=== PATIENT | female | born 1970 | race Caucasian/White ===

== ENCOUNTER 2019-03-06 06:56 | Inpatient (IN) | payer OTHER ==
[2019-03-06] MEDS ORDERED: ROCURONIUM 50 MG INJ (07:00)
[2019-03-06] MEDS ORDERED: THROMBIN 5000 UNIT VIAL (09:24)
[2019-03-06] MEDS ORDERED: LIDOCAINE 1%/EPI (1:100,000) (MDV) 20 ML (09:24)
[2019-03-06] MEDS ORDERED: BUPIVACAINE 0.5%/EPI (SDV) 10 ML INJ (09:24)
[2019-03-06] MEDS ORDERED: METOCLOPRAMIDE 10 MG INJ IV (09:30)
[2019-03-06] MEDS ORDERED: MEPERIDINE 25 MG INJ IV (09:30)
[2019-03-06] MEDS ORDERED: DIPHENHYDRAMINE 50 MG INJ IV (09:30)
[2019-03-06] MEDS ORDERED: HYDROmorphONE 1 MG/5 ML IV SYRINGE IV (09:30)
[2019-03-06] MEDS ORDERED: FENTAnyl 50 MCG/ML VIAL IV (09:30)
[2019-03-06] MEDS ORDERED: MIDAZOLAM 1 MG/ML 2 ML INJ (09:35)
[2019-03-06] MEDS: BUPIVACAINE 0.5%/EPI (SDV) 30 ML INJ (11:20)
[2019-03-06] MEDS: LIDOCAINE 0.5% (SDV) 50 ML INJ (11:20)
[2019-03-06] MEDS ORDERED: FENTAnyl 50 MCG/ML VIAL (12:07)
[2019-03-06] MEDS: THROMBIN 5000 UNIT VIAL (13:51)
[2019-03-06] MEDS: POLYMYXIN/BACITRACIN 1L IRRIG (13:57)
[2019-03-06] MEDS: GELATIN SIZE 100 SPONGE (13:57)
[2019-03-06] MEDS ORDERED: GELATIN SIZE 100 SPONGE (15:02)
[2019-03-06] MEDS ORDERED: CEFAZOLIN 1 GM INJ ×3 (15:31→15:43)
[2019-03-06] MEDS ORDERED: ONDANSETRON 4 MG INJ (15:35)
[2019-03-06] MEDS ORDERED: METOCLOPRAMIDE 10 MG INJ (15:35)
[2019-03-06] MEDS ORDERED: PROPOFOL 20 ML (15:43)
[2019-03-06] MEDS ORDERED: LIDOCAINE 2% (SDV) 5 ML INJ (15:43)
[2019-03-06] MEDS ORDERED: ETOMIDATE 20 MG INJ (15:43)
[2019-03-06] MEDS ORDERED: DOCUSATE SODIUM 100 MG CAP PO ×2 (16:30→17:00)
[2019-03-06] MEDS ORDERED: NALOXONE (0.4 MG/ML) INJ IV (16:30)
[2019-03-06] MEDS ORDERED: NACL 0.9% 3 ML SYG IV (16:30)
[2019-03-06 16:37] LABS: ADD UMIC YES; UR ASCORBIC ACID NEGATIVE (NEGATIVE); UR BILIRUBIN (Dip) NEGATIVE (NEGATIVE); UR BLOOD (Dip) 2+ mg/dL (NEGATIVE); UR CLARITY SLIGHTLY CLOUDY (CLEAR); UR COLOR YELLOW (YELLOW); UR GLUCOSE (Dip) NEGATIVE (NEGATIVE); UR KETONES (Dip) TRACE mg/dL (NEGATIVE); UR LEUKOCYTE ESTERASE (Dip) NEGATIVE Leu/ul (NEGATIVE); UR MUCUS MODERATE /HPF (NONE SEEN); UR NITRITE (Dip) NEGATIVE (NEGATIVE); UR RBC 33 /HPF (0-5); UR TOTAL PROTEIN (Dip) NEGATIVE (NEGATIVE); UR UROBILINOGEN (Dip) NEGATIVE (NEGATIVE); UR WBC 4 /HPF (0-5)
[2019-03-06] MEDS: HYDROmorphONE 1 MG/5 ML IV SYRINGE IV (17:01)
[2019-03-06] MEDS: ONDANSETRON 4 MG INJ IV (17:01)
[2019-03-06] MEDS: DOCUSATE SODIUM 100 MG CAP PO (18:34)
[2019-03-06] MEDS: CEFAZOLIN 1 GM/50 ML (PMX) 50 ML IVPB ×2 (18:34→23:43)
[2019-03-06] MEDS: DEXTROSE 5%-0.45% NACL 1,000 ML IV (18:37)
[2019-03-06] MEDS: CYCLOBENZAPRINE 10 MG TAB PO (20:07)
[2019-03-06] MEDS: HYDROmorphONE 0.5 MG/0.5 ML SYG IV ×2 (20:07→23:43)
[2019-03-07] MEDS: HYDROmorphONE 0.5 MG/0.5 ML SYG IV ×2 (03:35→11:14)
[2019-03-07] MEDS: HYDROCODONE/APAP (10/325) TAB PO ×3 (05:46→18:50)
[2019-03-07] MEDS: DOCUSATE SODIUM 100 MG CAP PO ×2 (05:46→17:00)
[2019-03-07] MEDS: DEXTROSE 5%-0.45% NACL 1,000 ML IV (05:47)
[2019-03-07] MEDS: CEFAZOLIN 1 GM/50 ML (PMX) 50 ML IVPB ×2 (05:47→11:21)
[2019-03-07] MEDS: CYCLOBENZAPRINE 10 MG TAB PO ×2 (08:54→13:58)
[2019-03-07] MEDS: traMADol 50 MG TAB PO (16:00)
[2019-03-07] MEDS: BACLOFEN 10 MG TAB PO ×2 (17:00→20:16)
[2019-03-07] MEDS ORDERED: ONDANSETRON 4 MG INJ IV (18:00)
[2019-03-08] MEDS: HYDROCODONE/APAP (10/325) TAB PO ×3 (01:18→13:52)
[2019-03-08] MEDS: DOCUSATE SODIUM 100 MG CAP PO ×2 (04:15→17:05)
[2019-03-08] MEDS: BACLOFEN 10 MG TAB PO ×2 (10:27→13:52)
== END 2019-03-08 19:00 | disposition home or self-care (01) | DRG 455 ==
LOC: REC 06:56 → MS1 17:20
PROC: 0SG00AJ Fusion of Lumbar Vertebral Joint with Interbody Fusion Device, Posterior Approach, Anterior Column, Open Approach (ICD-10-PCS; principal; 2019-03-06 09:00)
PROC: 0SG0071 Fusion of Lumbar Vertebral Joint with Autologous Tissue Substitute, Posterior Approach, Posterior Column, Open Approach (ICD-10-PCS; 2019-03-06 09:00)
PROC: 0SB20ZZ Excision of Lumbar Vertebral Disc, Open Approach (ICD-10-PCS; 2019-03-06 09:00)
PROC: 07DS3ZZ Extraction of Vertebral Bone Marrow, Percutaneous Approach (ICD-10-PCS; 2019-03-06 09:00)
PROC: 00UT0JZ Supplement Spinal Meninges with Synthetic Substitute, Open Approach (ICD-10-PCS; 2019-03-06 09:00)
PROC: 4A11X4G Monitoring of Peripheral Nervous Electrical Activity, Intraoperative, External Approach (ICD-10-PCS; 2019-03-06 09:00)
DX: M43.16 Spondylolisthesis, lumbar region (principal); M48.061 Spinal stenosis, lumbar region without neurogenic claudication; M51.16 Intervertebral disc disorders with radiculopathy, lumbar region; E66.01 Morbid (severe) obesity due to excess calories; Z68.35 Body mass index [BMI] 35.0-35.9, adult
CPT/HCPCS: 72114; 81001; 87086; 97110; 97116; 97163; 97164; 97530